=== PATIENT | female | born 1960 | race Caucasian/White ===

== ENCOUNTER 2021-10-30 08:12 | Day surgery (SDC) | payer MEDICARE, OTHER ==
[2021-10-28 10:00] LABS: COVID AG,FIA SOURCE NASOPHARYNGEAL
[~2021-10-30] VITALS: Ht 152.4 cm; Wt 40.9 kg
[~2021-10-30 08:12] MED LIST: SODIUM CHLORIDE 0.9% 1,000 ML IV ONE; SODIUM CHLORIDE 0.9% 1,000 ML ONE
[2021-10-30] MEDS ORDERED: FLUT1BLS3 (08:50)
[2021-10-30] MEDS ORDERED: VITA-328 PO (08:50)
[2021-10-30] MEDS ORDERED: MULT-1203 PO (08:50)
[2021-10-30] MEDS ORDERED: TRAZ-252 PO (08:50)
[2021-10-30] MEDS ORDERED: ALBU8HFA IH (08:50)
[2021-10-30] MEDS ORDERED: FURO20 PO (08:50)
[2021-10-30] MEDS ORDERED: MELA5TAB40 PO (08:50)
[2021-10-30] MEDS ORDERED: CARV3 PO (08:50)
[2021-10-30] MEDS ORDERED: NALT50TA6 PO (08:50)
[2021-10-30] MEDS ORDERED: PROPOFOL 1% 20 ML VIAL IVP ONE (12:00)
== END 2021-10-30 13:44 | disposition home or self-care (01) ==
LOC: SURGERY 08:12 → EDSEX 08:12 → SURGERY 13:44
PROVIDERS: ATTEND Internal Medicine Gastroenterology
DX: D12.0 Benign neoplasm of cecum (principal); K62.1 Rectal polyp; K64.0 First degree hemorrhoids; C20 Malignant neoplasm of rectum; I10 Essential (primary) hypertension; F17.210 Nicotine dependence, cigarettes, uncomplicated; I42.9 Cardiomyopathy, unspecified; J44.9 Chronic obstructive pulmonary disease, unspecified; F32.9 Major depressive disorder, single episode, unspecified; Z79.899 Other long term (current) drug therapy; Z98.890 Other specified postprocedural states; Z90.710 Acquired absence of both cervix and uterus
CPT/HCPCS: 87426; 45381; 45380; 88305; 93005; C9803; C1769; J2704; J7030